=== PATIENT | male | born 1935 | race Caucasian/White ===

== ENCOUNTER 2017-02-25 09:42 | Emergency (ER) | payer OTHER ==
--- NOTE | 2017-02-25 10:17 | ED Physician Documentation ---
Fall - HISTORIAN Historian: patient, spouse - HPI Stated Complaint: Left Hand Injury s/p Fall Chief Complaint: Fall Additional Information: pt tripped yest fell caught self w/ lt hand w/pain swelling lt hand est knuckles area-wrist un affected Onset: yesterday Where: park Context: tripped, lost balance r: mild, moderate Associated Symptoms:: no loss of consciousness Location of Pain/Injury: denies: head, neck, face, chest, abdomen, upper back, mid back Injury to Right Extremity: none Injury to Left Extremity: hand - ROS CONST: no problems MS/SKIN/LYMPH: denies: weakness, numbness, neck pain, back pain, ankle swelling , leg swelling EYES/ENT: none CVS/RESP: none GI/: denies: problems urinating, nausea, vomiting - PAST HX Past History: other (hypothryoid) Allergies/Adverse Reactions: Allergies Allergy/AdvReac Type Severity Reaction Status Date / Time codeine [Codeine] Allergy Verified 02/25/17 09:57 morphine Allergy Verified 02/25/17 09:57 Home Medications: Ambulatory Orders Medication Instructions Recorded Latanoprost [Latanoprost] 1 drop EACHEYE D 06/07/13 Levothyroxine Sodium [Synthroid] 150 mcg PO D 06/07/13 - SOCIAL HX Smoking History: non-smoker Alcohol Use: none Drug Use: none - FAMILY HX Family History: no significant history - VITAL SIGNS Vital Signs: Vital Signs Temp Pulse Resp BP Pulse Ox 98.1 F 64 16 157/81 98 02/25/17 09:45 02/25/17 09:45 02/25/17 09:45 02/25/17 09:45 02/25/17 09:45 - REVIEWED ASSESSMENTS Nursing Assessment Reviewed: Yes Vitals Reviewed: Yes ED Results Lab/Radiology - Radiology Radiology Impressions: djd peripheral joints but no apparent fracture - Orders Orders: ED Orders Category Date Time Status HAND 3 VIEWS OR MORE [RAD] Stat Exams 02/25/17 Ordered Fall Physical Exam - Physical Exam General Appearance: mild distress Head: non-tender, no swelling, no obvious injury Neck: non-tender, painless ROM Eye: TINA, EOMI ENT: nml external inspection Resp/CVS: chest non-tender, breath sounds nml, no resp. distress, heart sounds nml Abdomen: soft, non-tender Neuro: oriented x3, CN's nml as tested, sensation nml, motor nml Skin: color nml, no rash. No: cyanosis, diaphoresis Back: normal inspection - Abelino Coma Score Eyes Open: Spontaneous Speech: Oriented Discharge Clincal Impression: hand sprain from fall Home Medications: Ambulatory Orders Latanoprost [Latanoprost] 1 drop EACHEYE D 06/07/13 Levothyroxine Sodium [Synthroid] 150 mcg PO D 06/07/13 Comments: home resdt avoid furthur trauma Condition: Good Disposition: 01 HOME, SELF-CARE Decision to Admit: NO Decision Time: 10:53
[2017-02-25 10:53] VITALS: BP 132/62
--- NOTE | 2017-02-25 11:03 | Diagnostic Imaging Report ---
[facility] [address] [facility].[address] [address] Report Submission Date: Feb 25, 2017 10:32:01 AM CDT Patient Study Name: TIARRA LUNA Date: Feb 25, 2017 10:09:54 AM CDT Modality Type: CR Gender: M Description: UPPER EXTREMITY : 37 Institution: [facility] Physician: ALICIA MURILLO - COLE Left hand 3 views History: Pain after fall Findings: Osteoarthritis is advanced and the 1st carpometacarpal joint and mild in multiple interphalangeal joints. The 3rd through 5th digits are incompletely evaluated due to superimposition on the lateral film. There is focal cortical step off in the dorsal aspect of the 3rd distal phalangeal base, visible only on the lateral film. Dorsal soft tissue swelling is present at the level of the metacarpophalangeal joints on the lateral film. Impression: 1. Left 3rd distal phalangeal base fracture of uncertain age. 2. Osteoarthritis. 3. The 3rd through 5th digits are incompletely evaluated on the lateral film due to osseous superimposition. Electronically signed on Feb 25, 2017 10:32:01 AM CDT by: Rod VUONG
== END 2017-02-25 10:50 | disposition home or self-care (01) ==
LOC: ED 09:42
DX: S63.502A Unspecified sprain of left wrist, initial encounter (principal); W19.XXXA Unspecified fall, initial encounter; Y93.9 Activity, unspecified; Y99.9 Unspecified external cause status
CPT/HCPCS: 73130; 99283

== ENCOUNTER 2017-07-17 13:18 | Emergency (ER) | payer OTHER ==
--- NOTE | 2017-07-17 13:32 | ED Physician Documentation ---
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 Pt has not had difficulty swallowing or breathing.) - ROS CONST: no problems EYES/ENT: none CVS/RESP: none GI/: none MS/SKIN/LYMPH: other (bee stings L arm and occipital scalp) - PAST HX Past History: other (Thyroid d/o) Surgeries/Procedures: cholecystectomy, other (ortho surg) Allergies/Adverse Reactions: Allergies Allergy/AdvReac Type Severity Reaction Status Date / Time codeine [Codeine] Allergy Verified 02/25/17 09:57 morphine Allergy Verified 02/25/17 09:57 Home Medications: Ambulatory Orders Medication Instructions Recorded Latanoprost [Latanoprost] 1 drop EACHEYE D 06/07/13 Levothyroxine Sodium [Synthroid] 150 mcg PO D 06/07/13 - SOCIAL HX Smoking History: non-smoker - FAMILY HX Family History: No - VITAL SIGNS Vital Signs: Vital Signs Temp Pulse Resp BP Pulse Ox 132/62 02/25/17 10:50 - REVIEWED ASSESSMENTS Nursing Assessment Reviewed: Yes Vitals Reviewed: Yes Progress - Progress Progress: Solu-medrol 80 mg IM OTC Benadry as directed. ED Results Lab/Radiology - Orders Orders: ED Orders Category Date Time Status methylPREDNISolone SOD SUCC [Solu-MEDROL] Med 07/17/17 13:30 Once 80 mg IM NOW ONE General Adult Physical Exam - PHYSICAL EXAM GENERAL APPEARANCE: no distress EENT: pharynx normal NECK: normal inspection, supple RESPIRATORY: no resp distress, chest non-tender, breath sounds normal CVS: reg rate & rhythm, heart sounds normal BACK: normal inspection, no CVA tenderness SKIN: other (erythema L arm, ventral surface proximal to antecubital; erythema occipital scalp; no urticaria) EXTREMITIES: non-tender, normal range of motion, no evidence of injury NEURO: oriented X3, motor nml, sensation nml Discharge Clincal Impression: Bee sting Qualifiers: Encounter type: initial encounter Injury intent: accidental or unintentional Qualified Code(s): T63.441A - Toxic effect of venom of bees, accidental ( unintentional), initial encounter Referrals: Michael Turner MD [Primary Care Provider] - Condition: Good Disposition: 01 HOME, SELF-CARE Decision to Admit: NO Decision Time: 14:23
[2017-07-17 13:33] VITALS: BP 153/72
[2017-07-17] MEDS: methylPREDNISolone SOD SUCC 40 MG/ML VIAL IM ONE (13:53)
== END 2017-07-17 14:32 | disposition home or self-care (01) ==
LOC: ED 13:18
DX: T63.441A Toxic effect of venom of bees, accidental (unintentional), initial encounter (principal); X58.XXXA Exposure to other specified factors, initial encounter; Y93.9 Activity, unspecified; Y99.9 Unspecified external cause status
CPT/HCPCS: 96372; 99283; J2920; J1030

== ENCOUNTER 2018-01-18 11:17 | Outpatient (CLI) | payer OTHER ==
--- NOTE | 2018-01-19 08:29 | Diagnostic Imaging Report ---
JANUARY MONROE [facility] [address] [facility].[address] [address] Report Submission Date: Jan 18, 2018 11:57:00 AM CDT Patient Study Name: TIARRA LUNA Date: Jan 18, 2018 11:33:34 AM CDT Modality Type: DX Gender: M Description: SHOULDER : 39 Institution: [facility] Physician: JANUARY MONROE Examination: Plain film left shoulder History: LEFT SHOULDER, PAIN IN LEFT SHOULDER AFTER FALL ABOUT 3 WEEKS AGO (Hx) Comparison exams: None provided Findings: 3 views of the shoulder demonstrate normal cortical margins. No evidence for fracture or dislocation. Acromioclavicular joint degenerative spurring. No soft tissue abnormality. Impression: Acromioclavicular joint degenerative spurring. No acute osseous process. Electronically signed on Jan 18, 2018 11:57:00 AM CDT by: Jhonny VUONG
== END 2018-01-18 11:18 ==
LOC: RAD 11:17
PROVIDERS: ATTEND Nurse Practitioner Family
DX: M25.512 Pain in left shoulder (principal); G89.29 Other chronic pain
CPT/HCPCS: 73030

== ENCOUNTER 2018-02-04 22:47 | Emergency (ER) | payer OTHER ==
[2018-02-04] MEDS: KETOROLAC TROMETHAMINE 30 MG/1ML VIAL IVP ONE (23:11)
[2018-02-04] MEDS: 0.9 % SODIUM CHLORIDE 1,000 ML IV ONE (23:12)
[2018-02-04] MEDS: fentaNYL CITRATE/PF 100 MCG/ 2ML AMP IVP ONE ×2 (23:28→23:35)
[2018-02-04 23:33] LABS: MEAN CORPUSCULAR HEMOGLOBIN 32.4 pg (28.0-34.0)
[2018-02-04 23:35] LABS: eGFR (African) > 60; eGFR (Non-African) > 60
[2018-02-04] MEDS: ORPHENADRINE CITRATE 60 MG/2ML IM ONE (23:55)
[2018-02-05] MEDS: ONDANSETRON HCL/PF 4 MG/ 2ML VIAL ONE (00:29)
[2018-02-05] MEDS: ONDANSETRON HCL/PF 4 MG/ 2ML VIAL IVP ONE (00:29)
[2018-02-05] MEDS: HYDROmorphone HCL/PF 1 MG/ML DISP.SYRIN IM ONE (01:05)
--- NOTE | 2018-02-05 01:09 | ED Physician Documentation ---
Abdominal Pain - HISTORIAN Historian: patient, spouse - HPI Stated Complaint: right flank pain Chief Complaint: Abdominal Pain Onset: days ago (7) Duration: worse Timing: worse Context: denies: out of country travel, bad food, recent trauma Severity: severe Quality: pain Associated Symptoms: nausea, loss of appetite. denies: fever, chills, vomiting , bloody emesis, diarrhea, bloody stools, grossly bloody stools, mucous, sweating, chest pain, testicular pain, back pain, neck pain Exacerbated by: nothing Relieved by: nothing Further Comments: yes (82 year old male patient presents with complaint of right flank, RUQ and right lateral abdominal pain. Patient reports pain started 1 week ago and has become progressively worse. Patient denies vomiting or diarrhea. Denies fever, chills. C/O similar episode years ago, states he had multiple tests done with no diagnosis. Last BM this morning. Denies injury , fall, heavy lifting. Did not eat dinner due to pain.) - ROS CONST: no problems GI/: none. denies: constipation, black stools, bloody urine, bloody stools, problems urinating CVS/RESP: none EYES/ENT: none MS/SKIN/LYMPH: none NEURO/PSYCH: none - SOCIAL HX Smoking History: non-smoker - FAMILY HX Family History: other (hypothyroidism) - PAST HX Past History: none Ischemic Bowel Risk Factors: elderly Other History: none Surgeries/Procedures: cholecystectomy Home Medications: Ambulatory Orders Medication Instructions Recorded Levothyroxine Sodium [Synthroid] 150 mcg PO D 06/07/13 Allergies/Adverse Reactions: Allergies Allergy/AdvReac Type Severity Reaction Status Date / Time codeine [Codeine] Allergy Verified 02/05/18 01:01 morphine Allergy Verified 02/05/18 01:01 - VITAL SIGNS Vital Signs: Vital Signs Temp Pulse Resp BP Pulse Ox 98.4 F 76 20 170/101 95 02/04/18 22:50 02/05/18 00:30 02/04/18 22:50 02/04/18 22:50 02/05/18 00:30 - REVIEWED ASSESSMENTS Nursing Assessment Reviewed: Yes Vitals Reviewed: Yes Progress - Progress Progress: Minimal improvement after 2 doses of fentanyl. Patient c/o nausea. Reviewed CT results. 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 Reviewed diagnosis with patient and . Questions answered. Strongly encouraged follow up with PCP and Gi. Medicated for pain with dilaudid in ER, solumedrol 62.5mg IV. patient states he feels better at discharge. ED Results Lab/Radiology - Lab Results Lab Results: Lab Results 02/04/18 02/04/18 02/04/18 23:30 23:16 23:16 WBC 5.00 K/ul K/ul (4.00-12.00) RBC 4.09 M/ul M/ul (3.90-5.20) Hgb 13.3 g/dL g/dL (12.0-18.0) Hct 39.7 % % (37.0-53.0) MCV 97.0 fl fl (80.0-100.0) MCH 32.4 pg pg (28.0-34.0) MCHC 33.4 g/dL g/dL (30.0-36.0) RDW 14.1 % % (11.3-14.3) Plt Count 183 K/mm3 K/mm3 (130-400) Sodium 141 mmol/L mmol/L (136-145) Potassium 3.6 mmol/L mmol/L (3.5-5.1) Chloride 102 mmol/L mmol/L (98-107) Carbon Dioxide 28 mmol/L mmol/L (22-30) BUN 15 mg/dL mg/dL (9-20) Creatinine 0.80 mg/dL mg/dL (0.66-1.25) Estimated Creat Clear 89 Est GFR ( Amer) > 60 (60 - ) Est GFR (Non-Af Amer) > 60 (60 - ) Glucose 99 mg/dL mg/dL (74-106) Calcium 8.6 mg/dL mg/dL (8.4-10.2) Total Bilirubin 0.6 mg/dL mg/dL (0.2-1.3) AST 30 U/L U/L (15-46) ALT 44 U/L U/L (13-69) Alkaline Phosphatase 83 U/L U/L (38-126) Total Protein 7.1 g/dL g/dL (6.3-8.2) Albumin 4.0 g/dL g/dL (3.5-5.0) Lipase 138 U/L U/L (23-300) - Orders Orders: ED Orders Category Date Time Status Continuous EKG monitoring Q30M Care 02/04/18 22:55 Active Continuous Pulse Oximetry Q30M Care 02/04/18 22:[address] IV Lock 1T Care 02/04/18 22:[address] ABD & PELVIS W/ CON Stat Exams 02/04/18 Taken CBC/PLATELET/DIFF Stat Lab 02/04/18 23:16 Completed CMP Stat Lab 02/04/18 23:16 Completed LIPASE Stat Lab 02/04/18 23:30 Completed UA W/MICRO IF INDICATED Stat Lab 02/04/18 22:55 Ordered 0.9 % Sodium Chloride [Normal Saline] 1,000 ml Med 02/04/18 22:55 Discontinued IV NOW HYDROmorphone HCL/PF [Dilaudid] Med 02/05/18 00:57 Once 1 mg IM NOW ONE Ketorolac Tromethamine [Toradol] Med 02/04/18 22:55 Discontinued 30 mg IVP NOW ONE Ondansetron HCl/Pf [Zofran 4 mg/2 ml] Med 02/05/18 00:22 Discontinued 4 mg .ROUTE .STK-MED ONE Ondansetron HCl/Pf [Zofran 4 mg/2 ml] Med 02/05/18 00:22 Discontinued 4 mg IVP NOW ONE Orphenadrine Citrate [Norflex] Med 02/04/18 23:50 Discontinued 60 mg IM NOW ONE fentaNYL CITRATE/PF [Duragesic] Med 02/04/18 23:20 Discontinued 50 mcg IVP NOW ONE fentaNYL CITRATE/PF [Duragesic] Med 02/04/18 23:35 Discontinued 50 mcg IVP NOW ONE methylPREDNISolone SOD SUCC [Solu-MEDROL] Med 02/05/18 01:09 Once 62.5 mg IVP NOW ONE Abdominal Pain Physical Exam - Physical Exam General Appearance: moderate distress EENT: eye inspection normal, ENT inspection normal, pharynx normal, no signs of dehydration, TINA, no nystagmus, TM's nml RESPIRATORY: no resp distress, chest non-tender, breath sounds normal CVS: reg rate & rhythm, heart sounds normal, equal pulses, no murmur, no gallop , PMI nml, no JVD, no friction rub, 24 ABDOMEN: normal bowel sounds, no abdominal bruit, no distension, tenderness ( Tender to light palpation - RUQ, right mid and RLQ) BACK: normal inspection, CVA tenderness (R), other (C/O pain worse with movement ; right flank pain with palpation) SKIN: normal color, warm/dry, NR, INT, PAL, DR EXTREMITIES: non-tender, normal range of motion, no evidence of injury, no edema , J, 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 Follow up next week with your primary care provider. Take your Er reports, lab and disc to your primary care doctor. Condition: Stable Disposition: HOME, SELF-CARE Decision to Admit: NO Decision Time: 01:26
[2018-02-05] MEDS: methylPREDNISolone SOD SUCC 125 MG/2 ML VIAL IVP ONE (01:15)
[2018-02-05 01:42] VITALS: BP 166/90
--- NOTE | 2018-02-05 02:24 | Diagnostic Imaging Report ---
GAVINO MERRILL (SHANK SCOURER) - ER [facility] [address] [facility] [address] [place], [place]. [address] Report Submission Date: Feb 05, 2018 12:36:22 AM CDT Patient Study Name: TIARRA LUNA Date: Feb 05, 2018 12:08:58 AM CDT Modality Type: CT\SR Gender: M Description: CT ABD PELVIS W/ CON : 37 Institution: [facility] Physician: GAVINO MERRILL (SHANK SCOURER) - ER CT of the abdomen and pelvis with contrast Clinical history: RIGHT FLANK PAIN, ABD PAIN X 7 DAYS Contrast administered: 88 CC OMNIPAQUE Technique: CT of the abdomen and pelvis was performed with intravenous infusion of contrast. Sagittal and coronal reconstructions are performed by the technologist. Findings: There is minimal dependent atelectasis in the lung bases. Prominence of bronchial rolle in the visualized lung bases consistent with bibasilar bronchitis. Liver is diffusely hypodense consistent with hepatic steatosis. Gallbladder is surgically absent. Scattered calcified granulomata are seen in the spleen. There is no pancreatic or adrenal abnormality. The kidneys demonstrate symmetric enhancement. Vascular calcification and ectasia are demonstrated in the abdominal aorta. There is haziness in the mesentery in the left midabdomen consistent with mesenteric panniculitis. Scattered diverticula are seen in the descending and sigmoid colon without evidence of diverticulitis. Bladder is unremarkable. No free fluid in the pelvis or abdomen. There is no evident bladder or ureteral calculus. Diffuse spondylitic changes are seen in the visualized thoracolumbar vertebrae. Impression: 1. Mesenteric panniculitis. 2. Diverticulosis. 3. Postoperative changes. 4. Thoracolumbar spondylosis with spinal stenosis at L2/L3 and L3/L4. 5. Bibasilar bronchitis. Electronically signed on Feb 05, 2018 12:36:22 AM CDT by: Chris VUONG
[2018-02-05 06:20] LABS: APPEARANCE,URINE CLOUDY (CLEAR); COLOR,URINE YELLOW (YELLOW)
[2018-02-05 06:21] LABS: OCCULT BLOOD,URINE NEGATIVE (NEGATIVE); PH URINE 5.5 (5.0 - 8.0); UROBILINOGEN URINE 0.2 Eu (0.2-1.0)
== END 2018-02-05 01:25 | disposition home or self-care (01) ==
LOC: ED 22:47
DX: K65.4 Sclerosing mesenteritis (principal); K57.90 Diverticulosis of intestine, part unspecified, without perforation or abscess without bleeding; M47.895 Other spondylosis, thoracolumbar region; J40 Bronchitis, not specified as acute or chronic
CPT/HCPCS: 74177; 80053; 81002; 83690; 85025; J1170; J1885; J2360; J2405; J2930; J3010; J7030; 96365; 96366; 96372; 96375; 96376; 99284; Q9967; S1016

== ENCOUNTER 2019-02-12 22:10 | Emergency (ER) | payer BC, OTHER ==
--- NOTE | 2019-02-12 22:23 | ED Physician Documentation ---
General Adult - HISTORIAN Historian: patient - HPI Chief Complaint: Nausea,Vomiting,Diarrhea Additional Information: 83yo male who at about 18:30 developed some nausea and vomiting. Had some dry heaves. Vomited about 5 times, had 5 loose stools. No blood noted. No other family members ill. Has had some chills no fever noted. s/p choecystectomy. Onset: hours (started 18:60) Timing: still present, better Severity: moderate (has been having some dry heaves. ) Context: no know precipitating factor Further Comments: yes - ROS CONST: chills. denies: fever, sweating CVS/RESP: none GI/: vomiting, nausea, diarrhea - PAST HX Past History: hypertension Other History: other (hypothyroidism) Surgeries/Procedures: cholecystectomy, other (back surgery, arthroscopic knee surgery) Allergies/Adverse Reactions: Allergies Allergy/AdvReac Type Severity Reaction Status Date / Time codeine [Codeine] Allergy Verified 02/12/19 22:25 morphine Allergy Verified 02/12/19 22:25 Home Medications: Ambulatory Orders Medication Instructions Recorded Levothyroxine Sodium [Synthroid] 150 mcg PO D 06/07/13 Ondansetron HCl Rapdis [Zofran Odt] 4 mg PO Q6 #5 tab.rapdis 02/12/19 - SOCIAL HX Smoking History: non-smoker Alcohol Use: none Drug Use: none - FAMILY HX Family History: No - VITAL SIGNS Vital Signs: Vital Signs Temp Pulse Resp BP Pulse Ox 166/90 02/05/18 01:25 - REVIEWED ASSESSMENTS Nursing Assessment Reviewed: Yes Vitals Reviewed: Yes General Adult Physical Exam - PHYSICAL EXAM GENERAL APPEARANCE: mild distress EENT: eye inspection normal, ENT inspection normal, pharynx normal, no signs of dehydration NECK: normal inspection, thyroid normal, supple RESPIRATORY: no resp distress, chest non-tender, breath sounds normal, wheezes. No: rales, rhonchi CVS: reg rate & rhythm, heart sounds normal, equal pulses, no murmur, no gallop ABDOMEN: soft, no organomegaly, no distension, tenderness (mild LLQ and suprapubic area) BACK: normal inspection, no CVA tenderness SKIN: warm/dry, normal color. No: cyanosis, diaphoresis EXTREMITIES: non-tender NEURO: oriented X3, CN's nml as tested, motor nml, sensation nml, mood/affect nml, cognition normal Discharge Clincal Impression: Viral gastroenteritis Referrals: Michael Turner MD [Primary Care Provider] - 2 Days Additional Instructions: Clear liquids for the next 12 ours. Take frequent sips of water. Take Zofran as needed for nausea. If your symptoms do not improve to see your primary care provider or return to the ED. Disposition: 01 HOME, SELF-CARE Decision to Admit: NO (t) Date of Decison to Admit: 02/12/19 Decision Time: 23:45
[2019-02-12 23:22] LABS: MEAN CORPUSCULAR HEMOGLOBIN 31.9 pg (28.0-34.0)
[2019-02-12 23:23] LABS: eGFR (Non-African) > 60
[2019-02-12 23:34] LABS: SEGMENTED NEUTROPHILS % 15 % (39-79)
[2019-02-12 23:35] LABS: MONOCYTES % 5 % (0-11); PLT EST. EST. AGREES W/PLT CT
[2019-02-12] MEDS ORDERED: ONDANSETRON HCL 4 MG TAB.RAPDIS PO PRN (23:57)
[2019-02-12] MEDS ORDERED: ONDANSETRON HCL 4 MG TAB.RAPDIS ONE (23:59)
[2019-02-13 00:12] VITALS: BP 130/73
--- NOTE | 2019-02-13 06:38 | Diagnostic Imaging Report ---
JUAN LALA [facility] [address] [facility] [address] [address] Report Submission Date: Feb 12, 2019 11:33:37 PM CDT Patient Study Name: TIARRA LUNA Date: Feb 12, 2019 11:09:09 PM CDT Modality Type: DX Gender: M Description: ABD SERIES PA CHEST : 37 Institution: [facility] Physician: JUAN LALA Abdomen series with single view chest History: Nausea and vomiting Findings: A single view of the chest reveals clear lungs and normal heart size. Upright and supine abdomen radiographs reveal multilevel lumbar spondylosis and cholecystectomy clips. Gas is present within normal caliber small bowel loops. There is no evidence of bowel obstruction, free air, or constipation. Impression: Nonspecific, nonobstructive bowel gas pattern. Electronically signed on Feb 12, 2019 11:33:37 PM CDT by: Rod VUONG
[2019-02-13 07:39] LABS: APPEARANCE,URINE CLEAR (CLEAR); COLOR,URINE YELLOW (YELLOW); OCCULT BLOOD,URINE NEGATIVE (NEGATIVE); UROBILINOGEN URINE 0.2 Eu (0.2-1.0)
== END 2019-02-13 00:12 | disposition home or self-care (01) ==
LOC: ED 22:10
DX: A08.4 Viral intestinal infection, unspecified (principal)
CPT/HCPCS: 36415; 74022; 80053; 81002; 82150; 85025; 99283; S1016